=== PATIENT | female | born 1995 | race Two or more races ===

== ENCOUNTER 2023-04-21 03:05 | Emergency (ER) | payer OTHER ==
[~2023-04-21] VITALS: Ht 165.1 cm; Wt 47.6 kg
[2023-04-21] MEDS ORDERED: KETO10TA2 PO (08:05)
== END 2023-04-21 08:19 | disposition home or self-care (01) ==
LOC: ER 03:07
DX: S00.83XA Contusion of other part of head, initial encounter (principal); V00.831A Fall from motorized mobility scooter, initial encounter; Y93.89 Activity, other specified; Y92.413 State road as the place of occurrence of the external cause